=== PATIENT | male | born 1980 | race Caucasian/White ===

== ENCOUNTER → 2018-08-10 | Outpatient (CLI) | payer OTHER ==
[~2018-08-10] MED LIST: HYDACE5 PO; RXANTBENOT AU
[2018-08-10 18:25] LABS: BASOPHILS ABSOLUTE AUTO 0.04 K/mm3 (0.00-0.23); BASOPHILS PERCENT AUTO 1 % (0-2); EOSINOPHILS PERCENT AUTO 1 % (0-6); Hematocrit 41.6 % (37.0-53.0); Hemoglobin 14.8 g/dL (13.5-17.5); IMMATURE GRAN ABSOLUTE AUTO 0.04 K/mm3 (0.00-0.10); IMMATURE GRAN PERCENT AUTO 1 % (0-1); LYMPHOCYTES ABSOLUTE AUTO 3.46 K/mm3 (0.84-5.20); LYMPHOCYTES PERCENT AUTO 39 % (21-46); MONOCYTES ABSOLUTE AUTO 0.42 K/mm3 (0.16-1.47); MONOCYTES PERCENT AUTO 5 % (4-13); Mean Corpuscular HGB 30.6 pg (26.0-34.0); Mean Corpuscular HGB Conc 35.6 g/dL (31.5-36.5); Mean Corpuscular Volume 86 fL (80-100); Mean Platelet Volume 10.3 fL (9.1-12.4); NEUTROPHILS ABSOLUTE AUTO 4.76 K/mm3 (1.96-9.15); NEUTROPHILS PERCENT AUTO 54 % (41-73); Platelet Count 153 K/mm3 (150-400); RDW Coefficient Variation 11.9 % (11.7-14.2); Red Blood Cell Count 4.84 M/mm3 (4.30-5.90); White Blood Cell Count 8.82 K/mm3 (4.00-11.30)
== END | disposition home or self-care (01) ==
LOC: LAB EV 18:20 → LAB SHORT 18:20
PROVIDERS: Physician Assistant
DX: K92.2 Gastrointestinal hemorrhage, unspecified (principal)
CPT/HCPCS: 85025

== ENCOUNTER 2019-05-17 09:34 | Day surgery (SDC) | payer OTHER ==
[~2019-05-17] VITALS: Ht 188 cm; Wt 116.2 kg
--- NOTE | 2019-05-17 10:58 | NUR ---
05/17/[address] ASSESSED THE PT AND APPROVED THIS CASE FOR NURSE SEDATION AFTER SPEAKING WITH DR LIPSCOMB. RN EXPLAINED THE PROCEDURE UNTIL ALL QUESTIONS WERE ANSWERED. CALL LIGHT IN REACH. WARM BLANKETS PROVIDED.
== END 2019-05-17 12:09 | disposition home or self-care (01) ==
LOC: ORSCSDS 09:34
PROVIDERS: Internal Medicine Gastroenterology
PROC: 0DBN8ZX Excision of Sigmoid Colon, Via Natural or Artificial Opening Endoscopic, Diagnostic (ICD-10-PCS; principal; 2019-05-17 11:00)
PROC: 06LY4CC Occlusion of Hemorrhoidal Plexus with Extraluminal Device, Percutaneous Endoscopic Approach (ICD-10-PCS; principal; 2019-05-17 11:00)
PROC: 0DBM8ZX Excision of Descending Colon, Via Natural or Artificial Opening Endoscopic, Diagnostic (ICD-10-PCS; principal; 2019-05-17 11:00)
DX: K92.1 Melena (principal); D12.4 Benign neoplasm of descending colon; D12.5 Benign neoplasm of sigmoid colon; K57.30 Diverticulosis of large intestine without perforation or abscess without bleeding; K64.8 Other hemorrhoids
CPT/HCPCS: 88305; J2250; J2704; J7120

== ENCOUNTER → 2019-11-02 | Outpatient (CLI) | payer OTHER ==
[2019-11-02 15:10] LABS: BASOPHILS ABSOLUTE AUTO 0.04 K/mm3 (0.00-0.23); BASOPHILS PERCENT AUTO 1 % (0-2); EOSINOPHILS ABSOLUTE AUTO 0.14 K/mm3 (0.00-0.68); EOSINOPHILS PERCENT AUTO 2 % (0-6); Hematocrit 41.2 % (37.0-53.0); Hemoglobin 14.5 g/dL (13.5-17.5); IMMATURE GRAN ABSOLUTE AUTO 0.03 K/mm3 (0.00-0.10); IMMATURE GRAN PERCENT AUTO 0 % (0-1); LYMPHOCYTES ABSOLUTE AUTO 2.96 K/mm3 (0.84-5.20); LYMPHOCYTES PERCENT AUTO 36 % (21-46); MONOCYTES ABSOLUTE AUTO 0.46 K/mm3 (0.16-1.47); MONOCYTES PERCENT AUTO 6 % (4-13); Mean Corpuscular HGB 30.4 pg (26.0-34.0); Mean Corpuscular HGB Conc 35.2 g/dL (31.5-36.5); Mean Corpuscular Volume 86 fL (80-100); Mean Platelet Volume 10.5 fL (9.1-12.4); NEUTROPHILS ABSOLUTE AUTO 4.62 K/mm3 (1.96-9.15); NEUTROPHILS PERCENT AUTO 56 % (41-73); Platelet Count 145 K/mm3 (150-400); RDW Coefficient Variation 12.3 % (11.7-14.2); RDW Standard Deviation 38.8 fL (35.1-46.3); Red Blood Cell Count 4.77 M/mm3 (4.30-5.90); White Blood Cell Count 8.25 K/mm3 (4.00-11.30)
[2019-11-02 15:22] LABS: Anion Gap 11 mmol/L (6-16); Blood Urea Nitrogen 25 mg/dL (8-24); Bun/Creatinine Ratio 23.8 (12.0-20.0); CO2, Blood 28 mmol/L (21-32); Calcium, Blood 8.9 mg/dL (8.5-10.1); Chloride, Blood 103 mmol/L (98-108); Creatinine, Blood 1.05 mg/dL (0.60-1.20); Glomerular Filtration Rate >60 (60-); Glucose, Blood 118 mg/dL (70-99); Sodium, Blood 142 mmol/L (136-145)
[2019-11-02 15:44] LABS: Troponin I <0.017 ng/mL (0.000-0.040)
== END | disposition home or self-care (01) ==
LOC: LAB EV 15:05 → LAB SHORT 15:05
PROVIDERS: Family Medicine
DX: M79.602 Pain in left arm (principal)
CPT/HCPCS: 80048; 84484; 85025; 85379

== ENCOUNTER 2021-09-03 02:26 | Emergency (ER) | payer BC ==
[~2021-09-03] VITALS: Ht 188 cm; Wt 122.5 kg
[2021-09-03] MEDS ORDERED: HYDCOR2.5C PR (04:50)
[2021-09-03] MEDS ORDERED: MIRALAX17 GM PO (04:50)
[2021-09-03] MEDS ORDERED: AMOCLA875 PO (04:50)
== END 2021-09-03 05:31 | disposition home or self-care (01) ==
LOC: ER 02:26
DX: K64.4 Residual hemorrhoidal skin tags (principal); K61.0 Anal abscess
CPT/HCPCS: A9270

== ENCOUNTER 2025-04-16 11:07 | Day surgery (SDC) | payer BC ==
[2025-04-16] VITALS (7 sets, daily range): BP systolic 109–138; BP diastolic 73–96
[~2025-04-16] VITALS: Ht 188 cm; Wt 124.5 kg
[~2025-04-16 11:07] MED LIST changes: +AMOCLA875 PO; +AMPDEX10CR PO; +ARIMIDEX1 M2 PO; +DEPO-TESTO200 MG/1 M IM; +HYDCOR2.5C PR; +MIRALAX17 GM PO; +Norco 5-325 Ta1 EACH PO; +TADA10TA PO; +[UNRECOGNIZED DRUG - OTHER] PO
[2025-04-16] MEDS ORDERED: CeFAZolin Sodium 3,000 MG in NS 100 ML IV SCH (11:25)
[2025-04-16] MEDS ORDERED: Ondansetron HCl 2 MG / ML 2ML Vial ONE (12:12)
[2025-04-16] MEDS ORDERED: Dexamethasone Sod Phos 10 MG/ML 1ML VIAL ONE (12:12)
[2025-04-16] MEDS ORDERED: FentaNYL Citrate 50 MCG/ML 2 ML Injection ONE (12:13)
[2025-04-16] MEDS ORDERED: Metoclopramide HCl 5MG / ML 2ML Vial IV PRN (12:20)
[2025-04-16] MEDS ORDERED: HYDROmorphone HCl/Pf 1MG SYR IV PRN (12:20)
[2025-04-16] MEDS ORDERED: FentaNYL Citrate 50 MCG/ML 2 ML Injection IV PRN ×3 (12:20)
[2025-04-16] MEDS ORDERED: Midazolam HCl 1MG / ML 2ML Vial IV PRN (12:20)
[2025-04-16] MEDS ORDERED: Ondansetron HCl 2 MG / ML 2ML Vial IV PRN (12:20)
[2025-04-16] MEDS ORDERED: Bupivacaine 0.5% HCl 5 MG/ML 30MLVIAL ONE (13:28)
[2025-04-16] MEDS ORDERED: Bupivacaine 0.5% W/EPI 1:200000 SDV 30 ML Vial ONE (14:21)
--- NOTE | 2025-04-16 16:58 | NUR ---
PT PAINFUL ON ARRIVAL ASKING FOR H20AND COFFEE, TOLERATED PO FULID WELL ICE APPLIED TO FOOT NO ISSUES, PT MEDICATED FOR PAIN WITH 5/325OXYCODONE PT VOIDING NO ISSUES, DR KELLY/Sandra INSTRUCTIONS AND GENERALORTHO DISCHARGE INSTRUCTIONS GIVEN PT UNDERSTNADS HE IS NWB AND HE NEEDS TOSET UP HIS FOLLOW UP APPOINTMENT WITH DR CABRERA OFFICE Patient States Post-Procedure ride home has been arranged. Discharged via wheelchair to private car for ride home. Discharge instructions reviewed with patient. Patient verbalizes understanding. Copy given to patient to take home.
== END 2025-04-16 23:00 | disposition home or self-care (01) ==
LOC: ORSCMMR 11:07 → ORD 12:30 → ORSCMMR 23:00
PROVIDERS: Orthopaedic Surgery
PROC: 0QSP04Z Reposition Left Metatarsal with Internal Fixation Device, Open Approach (ICD-10-PCS; principal; 2025-04-16 13:30)
DX: S92.352A Displaced fracture of fifth metatarsal bone, left foot, initial encounter for closed fracture (principal); W22.8XXA Striking against or struck by other objects, initial encounter; E66.9 Obesity, unspecified; Z68.35 Body mass index [BMI] 35.0-35.9, adult
CPT/HCPCS: A9270; C1713; J0690; J1100; J2405; J2704; J3010; J7120

== ENCOUNTER 2025-04-18 21:20 | Emergency (ER) | payer OTHER, BC ==
[~2025-04-18] VITALS: Ht 188 cm; Wt 122.5 kg
[2025-04-18 21:39] VITALS: BP 167/89
[2025-04-18] MEDS ORDERED: Ketorolac Tromethamine 30mg Vial IV ONE (22:10)
== END 2025-04-18 22:22 | disposition home or self-care (01) ==
LOC: ER 21:20
DX: M79.675 Pain in left toe(s) (principal); W01.0XXA Fall on same level from slipping, tripping and stumbling without subsequent striking against object, initial encounter; M10.9 Gout, unspecified; Z98.890 Other specified postprocedural states
CPT/HCPCS: 73630; 96374; 99283-25; J1885

== ENCOUNTER 2025-04-23 09:19 | Emergency (ER) | payer BC ==
[~2025-04-23] VITALS: Ht 188 cm; Wt 124.7 kg
[2025-04-23] MEDS ORDERED: OXAYDO5 M1 PO (12:08)
[2025-04-23] MEDS ORDERED: XARELTO20 MG PO (12:08)
[2025-04-23 13:15] VITALS: BP 140/97
== END 2025-04-23 13:30 | disposition home or self-care (01) ==
LOC: ER 09:19
DX: I82.452 Acute embolism and thrombosis of left peroneal vein (principal); Z98.890 Other specified postprocedural states; Z79.899 Other long term (current) drug therapy
CPT/HCPCS: 93971; 99283-25